=== PATIENT | male | born 1945 ===

== ENCOUNTER 2023-09-09 13:36 | Inpatient (IN) ==
[2023-09-09] MEDS: 0.9 % SODIUM CHLORIDE 1,000 ML IV ONE ×2 (13:57→15:31)
[2023-09-09 14:52] LABS: Basophils # (Auto) 0.03 K/mcL (0.00-0.30); Basophils % (Auto) 0.3 % (0.0-2.0); Eosinophils # (Auto) 0.03 K/mcL (0.00-0.70); Eosinophils % (Auto) 0.3 % (0.0-7.0); Hematocrit 32.1 % (40.1-51.0); Lymphocytes # (Auto) 1.26 K/mcL (1.50-4.80); Lymphocytes % (Auto) 13.5 % (15.5-49.0); Mean Cell Volume 91.7 fL (80.0-100.0); Mean Corpuscular HGB Conc 34.3 g/dL (31.0-36.0); Mean Platelet Volume 11.6 fL (8.8-12.5); Monocytes # (Auto) 0.64 K/mcL (0.10-0.90); Monocytes % (Auto) 6.9 % (1.0-12.0); Neutrophils % (Auto) 78.5 % (38.0-78.0); Platelet Count 131 K/mcL (140-440); Red Cell Distribution Width 13.2 % (11.5-14.5); WBC 9.3 K/mcL (4.5-11.0)
[2023-09-09 15:03] LABS: ALT/SGPT 24 U/L (<40); AST/SGOT 30 U/L (<40); Albumin 3.9 gm/dL (3.2-5.2); Albumin/Globulin Ratio 1.6 (1.0-2.3); Alkaline Phosphatase 94 U/L (39-117); Bilirubin,Total 0.9 mg/dL (0.1-1.0); Blood Urea Nitrogen 73 mg/dL (8-23); Calcium 8.8 mg/dL (8.6-10.4); Carbon Dioxide 14 mmol/L (22-30); Chloride 96 mmol/L (96-108); Globulin 2.5 gm/dL (2.2-3.7); Glomerular Filtration Rate 13; Glucose 108 mg/dL (70-105)
[2023-09-09 15:11] LABS: INR 14.5 (0.9-1.1); Prothrombin Time 110.2 sec (11.9-14.5)
[2023-09-09 16:35] LABS: Blood Urea Nitrogen 73 mg/dL (8-23); Calcium 8.2 mg/dL (8.6-10.4); Carbon Dioxide 13 mmol/L (22-30); Chloride 99 mmol/L (96-108); Glomerular Filtration Rate 13; Glucose 97 mg/dL (70-105)
[2023-09-09] MEDS: PHYTONADIONE 10 MG/ML AMPUL PO ONE (17:08)
[2023-09-09 17:09] LABS: Appearance,Urine Clear (Clear); Bacteria,Urine Few /hpf (0); Bilirubin,Urine Negative (Negative); Color,Urine Yellow; Culture Indicated,Urine Yes; Glucose,Urine (UA) Negative (Negative); Ketones,Urine Negative (Negative); Leukocyte Esterase,Urine Negative /uL (Negative); Nitrate,Urine Negative (Negative); Protein,Urine Trace mg/dL (Negative); Urine Blood Moderate ery/mcL (Negative); Urine Granular Cast 4 /lph (0-0); Urine RBC 0 /hpf (0-3); Urine Squamous Epithelial Cell 0 /hpf (0-4); Urine WBC 2 /hpf (0-4); Urobilinogen,Urine Normal
[2023-09-09] MEDS ORDERED: MAGNESIUM SULFATE 2 GM/50 ML BAG IV PRN (21:02)
[2023-09-09] MEDS ORDERED: ONDANSETRON 4 MG/2 ML VIAL IV PRN (21:02)
[2023-09-09] MEDS ORDERED: hydrALAZINE 20 MG/ML VIAL IV PRN (21:02)
[2023-09-09] MEDS ORDERED: POTASSIUM CHLORIDE 20 MEQ TABLET PO PRN ×2 (21:02)
[2023-09-09] MEDS ORDERED: POTASSIUM CHLORIDE 40 MEQ in DEXTROSE 5% IN WATER 500 ML IV PRN (21:02)
[2023-09-09] MEDS ORDERED: SENNOSIDES 1 TABLET PO PRN (21:02)
[2023-09-09] MEDS ORDERED: POLYETHYLENE GLYCOL 3350 17 GM PACKET PO PRN (21:02)
[2023-09-09] MEDS: DOCUSATE SODIUM 100 MG CAPSULE PO SCH (21:36)
[2023-09-09] MEDS: SODIUM BICARBONATE 50 MEQ/50 ML VIAL ONE (21:36)
[2023-09-09] MEDS: SODIUM BICARBONATE VIAL 150 MEQ in DEXTROSE 5% IN WATER 850 ML IV SCH (21:38)
[2023-09-09 22:18] LABS: Creatinine, Spot Urine 62.9 mg/dL (39.0-259.0); Pro:Crea Ratio 0.22 (<0.20)
[2023-09-10 07:21] LABS: ALT/SGPT 19 U/L (<40); AST/SGOT 27 U/L (<40); Albumin 3.6 gm/dL (3.2-5.2); Albumin/Globulin Ratio 1.6 (1.0-2.3); Alkaline Phosphatase 84 U/L (39-117); Bilirubin,Direct 0.4 mg/dL (<0.3); Bilirubin,Total 1.6 mg/dL (0.1-1.0); Blood Urea Nitrogen 68 mg/dL (8-23); Calcium 8.6 mg/dL (8.6-10.4); Carbon Dioxide 16 mmol/L (22-30); Chloride 102 mmol/L (96-108); Globulin 2.3 gm/dL (2.2-3.7); Glomerular Filtration Rate 17; Glucose 114 mg/dL (70-105); Lactate Dehydrogenase 134 U/L (135-225); Phosphorous 2.7 mg/dL (2.5-4.5); Triglycerides 118 mg/dL (<150); Uric Acid 5.3 mg/dL (2.5-8.0)
[2023-09-10 07:50] LABS: Basophils # (Auto) 0.03 K/mcL (0.00-0.30); Basophils % (Auto) 0.4 % (0.0-2.0); Eosinophils # (Auto) 0.06 K/mcL (0.00-0.70); Eosinophils % (Auto) 0.9 % (0.0-7.0); Hemoglobin 10.4 g/dL (13.7-17.5); Lymphocytes # (Auto) 1.13 K/mcL (1.50-4.80); Lymphocytes % (Auto) 16.1 % (15.5-49.0); Mean Cell Volume 92.6 fL (80.0-100.0); Mean Corpuscular HGB Conc 34.7 g/dL (31.0-36.0); Mean Platelet Volume 11.9 fL (8.8-12.5); Monocytes % (Auto) 8.6 % (1.0-12.0); Neutrophils % (Auto) 73.7 % (38.0-78.0); Platelet Count 124 K/mcL (140-440); RBC 3.24 M/mcL (4.63-6.08); Red Cell Distribution Width 13.3 % (11.5-14.5)
[2023-09-10 08:01] LABS: INR 1.8 (0.9-1.1); Prothrombin Time 21.9 sec (11.9-14.5)
[2023-09-10] MEDS: SODIUM BICARBONATE 650 MG TABLET PO SCH (08:50)
[2023-09-10 10:04] LABS: INR 1.6 (0.9-1.1); Prothrombin Time 20.2 sec (11.9-14.5)
[2023-09-10] MEDS: WARFARIN 3 MG TABLET PO ONE (15:06)
[2023-09-10] MEDS: PANTOPRAZOLE 40 MG VIAL IV SCH (18:10)
[2023-09-10] MEDS: 0.9 % SODIUM CHLORIDE 10 ML SYRINGE IV SCH (18:55)
[2023-09-11 07:49] LABS: Blood Urea Nitrogen 53 mg/dL (8-23); Calcium 8.8 mg/dL (8.6-10.4); Carbon Dioxide 19 mmol/L (22-30); Chloride 100 mmol/L (96-108); Glomerular Filtration Rate 22; Glucose 117 mg/dL (70-105)
[2023-09-11 08:38] LABS: INR 1.4 (0.9-1.1); Prothrombin Time 17.9 sec (11.9-14.5)
[2023-09-11] MEDS: ALLOPURINOL 100 MG TABLET PO SCH (08:42)
[2023-09-11] MEDS: METOPROLOL SUCCINATE 25 MG TAB.XL.24H PO SCH (08:43)
[2023-09-11] MEDS: ATORVASTATIN 40 MG TABLET PO SCH (08:47)
[2023-09-11] MEDS ORDERED: OLMESARTAN MEDOXOMIL 20 MG TABLET PO SCH (09:00)
[2023-09-11] MEDS: TERAZOSIN 1 MG CAPSULE PO SCH (10:39)
[2023-09-11] MEDS: SODIUM BICARBONATE 650 MG TABLET PO SCH (10:40)
[2023-09-11] MEDS: PNEUMOCOCCAL 23-VAL P-SAC VAC 0.5 ML SYRINGE IM ONE (13:12)
[2023-09-11] MEDS: 0.9 % SODIUM CHLORIDE 1,000 ML IV SCH (15:28)
[2023-09-12 06:36] LABS: Basophils # (Auto) 0.03 K/mcL (0.00-0.30); Basophils % (Auto) 0.4 % (0.0-2.0); Eosinophils # (Auto) 0.12 K/mcL (0.00-0.70); Eosinophils % (Auto) 1.7 % (0.0-7.0); Hematocrit 28.5 % (40.1-51.0); Hemoglobin 9.8 g/dL (13.7-17.5); Lymphocytes # (Auto) 1.42 K/mcL (1.50-4.80); Lymphocytes % (Auto) 20.6 % (15.5-49.0); Mean Cell Volume 94.7 fL (80.0-100.0); Mean Corpuscular HGB Conc 34.4 g/dL (31.0-36.0); Mean Platelet Volume 11.9 fL (8.8-12.5); Monocytes # (Auto) 0.57 K/mcL (0.10-0.90); Monocytes % (Auto) 8.3 % (1.0-12.0); Neutrophils % (Auto) 68.7 % (38.0-78.0); Platelet Count 127 K/mcL (140-440); RBC 3.01 M/mcL (4.63-6.08); Red Cell Distribution Width 13.1 % (11.5-14.5); WBC 6.9 K/mcL (4.5-11.0)
[2023-09-12 07:12] LABS: ALT/SGPT 20 U/L (<40); AST/SGOT 25 U/L (<40); Albumin 3.6 gm/dL (3.2-5.2); Albumin/Globulin Ratio 1.6 (1.0-2.3); Alkaline Phosphatase 79 U/L (39-117); Bilirubin,Total 2.6 mg/dL (0.1-1.0); Blood Urea Nitrogen 42 mg/dL (8-23); Carbon Dioxide 23 mmol/L (22-30); Chloride 102 mmol/L (96-108); Globulin 2.2 gm/dL (2.2-3.7); Glomerular Filtration Rate 24; Glucose 108 mg/dL (70-105)
[2023-09-12 08:03] LABS: INR 1.5 (0.9-1.1); Prothrombin Time 18.9 sec (11.9-14.5)
[2023-09-13 07:09] LABS: Basophils # (Auto) 0.02 K/mcL (0.00-0.30); Basophils % (Auto) 0.3 % (0.0-2.0); Eosinophils # (Auto) 0.17 K/mcL (0.00-0.70); Eosinophils % (Auto) 2.5 % (0.0-7.0); Hematocrit 27.5 % (40.1-51.0); Lymphocytes % (Auto) 20.3 % (15.5-49.0); Mean Cell Volume 97.2 fL (80.0-100.0); Mean Corpuscular HGB Conc 32.7 g/dL (31.0-36.0); Monocytes # (Auto) 0.47 K/mcL (0.10-0.90); Monocytes % (Auto) 6.8 % (1.0-12.0); Neutrophils % (Auto) 69.8 % (38.0-78.0); Platelet Count 120 K/mcL (140-440); RBC 2.83 M/mcL (4.63-6.08); Red Cell Distribution Width 13.2 % (11.5-14.5); WBC 6.9 K/mcL (4.5-11.0)
[2023-09-13 07:43] LABS: ALT/SGPT 17 U/L (<40); AST/SGOT 26 U/L (<40); Albumin 3.5 gm/dL (3.2-5.2); Albumin/Globulin Ratio 1.7 (1.0-2.3); Alkaline Phosphatase 73 U/L (39-117); Bilirubin,Total 2.4 mg/dL (0.1-1.0); Blood Urea Nitrogen 35 mg/dL (8-23); Calcium 8.5 mg/dL (8.6-10.4); Carbon Dioxide 18 mmol/L (22-30); Chloride 104 mmol/L (96-108); Globulin 2.1 gm/dL (2.2-3.7); Glomerular Filtration Rate 26; Glucose 96 mg/dL (70-105)
[2023-09-13 08:58] LABS: INR 1.5 (0.9-1.1); Prothrombin Time 19.4 sec (11.9-14.5)
== END 2023-09-13 13:45 | disposition home or self-care (01) | DRG 682 ==
LOC: ED 13:36 → ICU 20:48 → MEDSUR 09-11 16:38
PROVIDERS: ADMIT Internal Medicine; ATTEND Internal Medicine

== ENCOUNTER 2024-11-03 19:10 | Observation (INO) ==
[2024-11-03] MEDS ORDERED: IOPAMIDOL 100 ML BOTTLE IV ONE (19:11)
[2024-11-03 19:39] LABS: Basophils # (Auto) 0.01 K/mcL (0.00-0.30); Basophils % (Auto) 0.1 % (0.0-2.0); Eosinophils # (Auto) 0.11 K/mcL (0.00-0.70); Eosinophils % (Auto) 1.3 % (0.0-7.0); Hematocrit 34.8 % (40.1-51.0); Hemoglobin 11.6 g/dL (13.7-17.5); Lymphocytes % (Auto) 22.5 % (15.5-49.0); Mean Cell Volume 95.9 fL (80.0-100.0); Mean Corpuscular HGB Conc 33.3 g/dL (31.0-36.0); Mean Platelet Volume 11.3 fL (8.8-12.5); Monocytes # (Auto) 0.53 K/mcL (0.10-0.90); Monocytes % (Auto) 6.3 % (1.0-12.0); Neutrophils % (Auto) 69.7 % (38.0-78.0); Platelet Count 135 K/mcL (140-440); RBC 3.63 M/mcL (4.63-6.08); WBC 8.5 K/mcL (4.5-11.0)
[2024-11-03 19:55] LABS: INR 3.9 (0.9-1.1); Partial Thromboplastin Time 41.9 sec (20.0-37.0)
[2024-11-03 20:00] LABS: ALT/SGPT 18 U/L (<40); AST/SGOT 24 U/L (<40); Albumin 3.8 gm/dL (3.2-5.2); Albumin/Globulin Ratio 1.2 (1.0-2.3); Alkaline Phosphatase 89 U/L (39-117); Bilirubin,Total 0.9 mg/dL (0.1-1.0); Blood Urea Nitrogen 33 mg/dL (8-23); Calcium 9.3 mg/dL (8.6-10.4); Carbon Dioxide 18 mmol/L (22-30); Chloride 102 mmol/L (96-108); Globulin 3.1 gm/dL (2.2-3.7); Glomerular Filtration Rate 35; Glucose 102 mg/dL (70-105); Potassium 4.8 mmol/L (3.3-5.1); Sodium 132 mmol/L (133-145)
[2024-11-03] MEDS: 0.9 % SODIUM CHLORIDE 500 ML IV ONE (20:17)
[2024-11-03 20:38] LABS: Appearance,Urine Clear (Clear); Bilirubin,Urine Negative (Negative); Color,Urine Yellow; Glucose,Urine (UA) Negative (Negative); Ketones,Urine Negative (Negative); Leukocyte Esterase,Urine Negative /uL (Negative); Nitrate,Urine Negative (Negative); Protein,Urine 100 mg/dL (Negative); Specific Gravity,Urine 1.015 (1.000-1.035); Urine Blood Small ery/mcL (Negative); Urine RBC 0 /hpf (0-3); Urine Squamous Epithelial Cell 2 /hpf (0-4); Urine WBC 2 /hpf (0-4); Urobilinogen,Urine Normal
[2024-11-03] MEDS: ASPIRIN 81 MG TAB.CHEW CHEWED ONE (20:51)
[2024-11-03] MEDS ORDERED: traZODone HCL 50 MG TABLET PO PRN (21:18)
[2024-11-03] MEDS ORDERED: IPRATROPIUM/ALBUTEROL 3 ML AMPUL.NEB NEB PRN (21:18)
[2024-11-03] MEDS ORDERED: ACETAMINOPHEN 325 MG TABLET PO PRN (21:18)
[2024-11-03] MEDS ORDERED: ONDANSETRON 4 MG/2 ML VIAL IV PRN (21:18)
[2024-11-03] MEDS: DOCUSATE SODIUM 100 MG CAPSULE PO SCH (21:49)
[2024-11-03] MEDS: 0.9 % SODIUM CHLORIDE 10 ML SYRINGE IV SCH (21:49)
[2024-11-03] MEDS: SENNOSIDES 1 TABLET PO SCH (21:49)
[2024-11-03 22:46] LABS: HDL Cholesterol 40 mg/dL (>40); LDL Cholesterol,Calculated 41 mg/dL (<100); Non-HDL Cholesterol 56 mg/dL (<130); Triglycerides 76 mg/dL (<150)
[2024-11-03 22:51] LABS: Estimated Average Glucose(eAG) 114 mg/dL; Hemoglobin A1C 5.6 % Hgb (4.0-6.0)
[2024-11-04 05:50] LABS: Basophils # (Auto) 0.02 K/mcL (0.00-0.30); Basophils % (Auto) 0.3 % (0.0-2.0); Eosinophils # (Auto) 0.16 K/mcL (0.00-0.70); Eosinophils % (Auto) 2.1 % (0.0-7.0); Hematocrit 36.3 % (40.1-51.0); Hemoglobin 11.7 g/dL (13.7-17.5); Lymphocytes # (Auto) 1.73 K/mcL (1.50-4.80); Lymphocytes % (Auto) 22.9 % (15.5-49.0); Mean Cell Volume 97.8 fL (80.0-100.0); Mean Corpuscular HGB Conc 32.2 g/dL (31.0-36.0); Mean Platelet Volume 11.2 fL (8.8-12.5); Monocytes # (Auto) 0.55 K/mcL (0.10-0.90); Monocytes % (Auto) 7.3 % (1.0-12.0); Neutrophils % (Auto) 67.3 % (38.0-78.0); Platelet Count 132 K/mcL (140-440); RBC 3.71 M/mcL (4.63-6.08); WBC 7.6 K/mcL (4.5-11.0)
[2024-11-04 06:08] LABS: Blood Urea Nitrogen 29 mg/dL (8-23); Calcium 9.4 mg/dL (8.6-10.4); Carbon Dioxide 21 mmol/L (22-30); Chloride 104 mmol/L (96-108); Glomerular Filtration Rate 37; Glucose 105 mg/dL (70-105); Potassium 5.1 mmol/L (3.3-5.1); Sodium 136 mmol/L (133-145)
[2024-11-04 07:04] LABS: INR 3.9 (0.9-1.1); Prothrombin Time 41.6 sec (11.9-14.5)
[2024-11-04] MEDS: amLODIPine 5 MG TABLET PO SCH (08:09)
[2024-11-04] MEDS: ATORVASTATIN 40 MG TABLET PO SCH (08:13)
[2024-11-04] MEDS: PANTOPRAZOLE 40 MG TABLET PO SCH (08:14)
[2024-11-04] MEDS: ASPIRIN 81 MG TAB.CHEW CHEWED SCH (08:14)
[2024-11-04] MEDS: DOCUSATE SODIUM 100 MG CAPSULE PO SCH (08:14)
[2024-11-04] MEDS: HYDROCHLOROTHIAZIDE 25 MG TABLET PO SCH (09:37)
[2024-11-04] MEDS ORDERED: METOPROLOL SUCCINATE 25 MG TAB.XL.24H PO SCH (21:00)
[2024-11-04] MEDS ORDERED: ALLOPURINOL 100 MG TABLET PO SCH (21:00)
[2024-11-04] MEDS ORDERED: WARFARIN 10 MG PO SCH (21:00)
[2024-11-04] MEDS ORDERED: TERAZOSIN 1 MG CAPSULE PO SCH (21:00)
== END 2024-11-04 11:30 | disposition home or self-care (01) ==
LOC: ED 19:10 → ICU 19:10
PROVIDERS: ADMIT Internal Medicine; ATTEND Internal Medicine

== ENCOUNTER 2024-12-21 13:18 | Inpatient (IN) ==
[2024-12-21 14:26] LABS: INR 5.0 (0.9-1.1); Prothrombin Time 50.5 sec (11.9-14.5)
[2024-12-21 14:36] LABS: Anion Gap 16.0 (8.0-16.0); Blood Urea Nitrogen 43 mg/dL (8-23); Calcium 9.9 mg/dL (8.6-10.4); Carbon Dioxide 23 mmol/L (22-30); Chloride 87 mmol/L (96-108); Glucose 131 mg/dL (70-105); Potassium 3.8 mmol/L (3.3-5.1); Sodium 126 mmol/L (133-145)
[2024-12-21 15:02] LABS: Basophils # (Auto) 0.02 K/mcL (0.00-0.30); Basophils % (Auto) 0.2 % (0.0-2.0); Eosinophils # (Auto) 0.01 K/mcL (0.00-0.70); Eosinophils % (Auto) 0.1 % (0.0-7.0); Hematocrit 37.1 % (40.1-51.0); Hemoglobin 12.9 g/dL (13.7-17.5); Lymphocytes # (Auto) 0.83 K/mcL (1.50-4.80); Lymphocytes % (Auto) 8.9 % (15.5-49.0); Mean Corpuscular HGB Conc 34.8 g/dL (31.0-36.0); Monocytes # (Auto) 0.52 K/mcL (0.10-0.90); Monocytes % (Auto) 5.6 % (1.0-12.0); Neutrophils % (Auto) 85.0 % (38.0-78.0); Platelet Count 165 K/mcL (140-440); RBC 4.10 M/mcL (4.63-6.08); WBC 9.3 K/mcL (4.5-11.0)
[2024-12-21 16:34] LABS: Bilirubin,Urine Negative (Negative); Color,Urine Yellow; Glucose,Urine (UA) Negative (Negative); Ketones,Urine Negative (Negative); Leukocyte Esterase,Urine Negative /uL (Negative); PH,Urine 7.0 (5.0-9.0); Protein,Urine 30 mg/dL (Negative); Specific Gravity,Urine 1.015 (1.000-1.035); Urobilinogen,Urine Normal
[2024-12-21 17:43] LABS: Thyroid Stimulating Hormone 1.21 uIU/mL (0.27-5.01)
[2024-12-21] MEDS ORDERED: SENNOSIDES 1 TABLET PO SCH (19:39)
[2024-12-21] MEDS ORDERED: LACTULOSE 20 GM/30 ML ORAL.SOL PO PRN (19:39)
[2024-12-21] MEDS ORDERED: ACETAMINOPHEN 325 MG TABLET PO PRN (19:39)
[2024-12-21] MEDS ORDERED: ONDANSETRON 4 MG/2 ML VIAL IV PRN (19:39)
[2024-12-21] MEDS: 0.9 % SODIUM CHLORIDE 10 ML SYRINGE IV SCH (20:46)
[2024-12-22 06:07] LABS: Basophils # (Auto) 0.02 K/mcL (0.00-0.30); Basophils % (Auto) 0.2 % (0.0-2.0); Eosinophils # (Auto) 0.04 K/mcL (0.00-0.70); Eosinophils % (Auto) 0.5 % (0.0-7.0); Hematocrit 35.2 % (40.1-51.0); Hemoglobin 12.6 g/dL (13.7-17.5); Lymphocytes # (Auto) 1.41 K/mcL (1.50-4.80); Lymphocytes % (Auto) 16.2 % (15.5-49.0); Mean Corpuscular HGB Conc 35.8 g/dL (31.0-36.0); Monocytes # (Auto) 0.85 K/mcL (0.10-0.90); Monocytes % (Auto) 9.8 % (1.0-12.0); Neutrophils % (Auto) 73.1 % (38.0-78.0); Platelet Count 154 K/mcL (140-440); RBC 3.91 M/mcL (4.63-6.08); WBC 8.7 K/mcL (4.5-11.0)
[2024-12-22 06:41] LABS: ALT/SGPT 29 U/L (<40); AST/SGOT 39 U/L (<40); Albumin 4.1 gm/dL (3.2-5.2); Albumin/Globulin Ratio 1.5 (1.0-2.3); Alkaline Phosphatase 70 U/L (39-117); Anion Gap 14.0 (8.0-16.0); Bilirubin,Direct 0.9 mg/dL (<0.3); Bilirubin,Total 2.2 mg/dL (0.1-1.0); Blood Urea Nitrogen 44 mg/dL (8-23); Calcium 9.8 mg/dL (8.6-10.4); Carbon Dioxide 24 mmol/L (22-30); Chloride 88 mmol/L (96-108); Globulin 2.7 gm/dL (2.2-3.7); Glucose 113 mg/dL (70-105); Phosphorous 3.0 mg/dL (2.5-4.5); Potassium 3.9 mmol/L (3.3-5.1); Sodium 126 mmol/L (133-145); Triglycerides 91 mg/dL (<150); Uric Acid 6.1 mg/dL (2.5-8.0)
[2024-12-22 07:29] LABS: Iron 48 ug/dL (61-157); TIBC Calculation 278 ug/dl (228-428); Transferrin % Saturation 17 % (20-50)
[2024-12-22 07:33] LABS: INR 5.4 (0.9-1.1); Prothrombin Time 53.5 sec (11.9-14.5)
[2024-12-22 08:26] LABS: Ferritin 641.0 ng/mL (30.0-400.0)
[2024-12-22] MEDS: 0.9 % SODIUM CHLORIDE 500 ML IV ONE (10:24)
[2024-12-22] MEDS: MIDODRINE 5 MG TABLET PO SCH (11:27)
[2024-12-22] MEDS ORDERED: MIDODRINE 5 MG TABLET PO SCH (12:00)
[2024-12-22] MEDS: 0.9 % SODIUM CHLORIDE 500 ML IV PRN (12:50)
[2024-12-22] MEDS: MIDODRINE 5 MG TABLET PO PRN (17:19)
[2024-12-22 18:18] LABS: Albumin 3.9 gm/dL (3.2-5.2); Anion Gap 15.0 (8.0-16.0); Blood Urea Nitrogen 42 mg/dL (8-23); C-Reactive Protein 1.49 mg/dL (0.03-0.80); Calcium 9.5 mg/dL (8.6-10.4); Carbon Dioxide 20 mmol/L (22-30); Chloride 90 mmol/L (96-108); Glucose 115 mg/dL (70-105); Phosphorous 2.6 mg/dL (2.5-4.5); Potassium 4.3 mmol/L (3.3-5.1); Sodium 125 mmol/L (133-145)
[2024-12-23 08:03] LABS: ALT/SGPT 27 U/L (<40); AST/SGOT 35 U/L (<40); Albumin 3.9 gm/dL (3.2-5.2); Albumin/Globulin Ratio 1.5 (1.0-2.3); Alkaline Phosphatase 64 U/L (39-117); Anion Gap 11.0 (8.0-16.0); Bilirubin,Direct 0.7 mg/dL (<0.3); Bilirubin,Total 2.3 mg/dL (0.1-1.0); Blood Urea Nitrogen 41 mg/dL (8-23); Calcium 9.3 mg/dL (8.6-10.4); Carbon Dioxide 23 mmol/L (22-30); Chloride 94 mmol/L (96-108); Globulin 2.6 gm/dL (2.2-3.7); Glucose 107 mg/dL (70-105); Phosphorous 2.2 mg/dL (2.5-4.5); Potassium 4.2 mmol/L (3.3-5.1); Sodium 128 mmol/L (133-145); Triglycerides 80 mg/dL (<150); Uric Acid 5.8 mg/dL (2.5-8.0)
[2024-12-23 08:17] LABS: INR 3.6 (0.9-1.1); Prothrombin Time 39.0 sec (11.9-14.5)
[2024-12-23 11:22] LABS: Sodium, Urine Random 34 mmol/L
== END 2024-12-23 16:26 | DRG 312 ==
LOC: SUPCPDRO → ED 13:18 → ICU 19:33
PROVIDERS: ADMIT Internal Medicine; ATTEND Internal Medicine